=== PATIENT | male | born 1985 | race American Indian/Alaskan Native ===

== ENCOUNTER 2021-01-30 09:02 | Emergency (ER) | payer SELFPAY ==
[2021-01-30 09:49] VITALS: BP 129/84
== END 2021-01-31 04:42 ==
LOC: ED 09:02
DX: T78.40XA Allergy, unspecified, initial encounter (principal); Z53.21 Procedure and treatment not carried out due to patient leaving prior to being seen by health care provider; X58.XXXA Exposure to other specified factors, initial encounter
CPT/HCPCS: 99281